=== PATIENT | female | born 1955 | race Caucasian/White ===

== ENCOUNTER 2020-12-13 09:14 | Outpatient (CLI) | payer MEDICARE ==
--- NOTE | 2020-12-14 11:29 | Mammography Report ---
BILATERAL DIGITAL DIAGNOSTIC MAMMOGRAM 3D/2D: 12/13/2020 CLINICAL: Occasional left breast pain. Comparison is made to exam dated: 09/19/2008 mammogram - [facility]. The tissue of both breasts is predominantly fatty. No significant masses, calcifications, or other findings are seen in either breast. Specifically, no finding to explain the patient's diffuse left breast and axillary pain. IMPRESSION: NEGATIVE There is no abnormality seen in the left breast to correspond with the diffuse pain. There is no mammographic evidence of malignancy. Return to annual mammogram screening schedule is rec ommended. Findings and recommendations were conveyed to the patient at time of exam. This exam was interpreted at Station ID: [id number]. NOTE: For mammograms, a report in lay terms will be sent to the patient. Approximately 15% of breast malignancies will not be visualized mammographically. In the management of a palpable breast mass, a negative mammogram must not discourage biopsy of a clinically suspicious lesion. Electronically Signed By: Kristie preston/:12/13/2020 10:14:24 ACR BI-RADS Category 1: Negative 3341F PARENCHYMAL PATTERN: (F) - The breast(s) demonstrate(s) diffuse fatty replacement. BI-RADS CATEGORY: (1) - 1 RECOMMENDATION: (ANNUAL) - Recommend routine annual screening mammography. [id number] return to screening LATERALITY: (B)
== END 2020-12-13 09:15 | disposition home or self-care (01) ==
LOC: DI 09:14
PROVIDERS: ATTEND Nurse Practitioner Family
DX: N63.23 Unspecified lump in the left breast, lower outer quadrant (principal)

== ENCOUNTER 2022-03-21 08:00 | Outpatient (CLI) | payer MEDICARE ==
--- NOTE | 2022-03-21 19:00 | XRAY Report ---
PROCEDURE: Toe(s) LT INDICATIONS: LEFT 2ND TOE NONDISPLACED FX TECHNIQUE: 3 views of the left foot second digit acquired. COMPARISON: None. FINDINGS: Bones: Subacute appearing mildly displaced and impacted fracture of the medial distal aspect of the s econd digit proximal phalanx. The fracture plane involves the PIP joint. There is likely a minimal am ount of bony callus present. No other acute or subacute fractures identified. Soft tissues: No suspicious soft tissue densities. IMPRESSION: Subacute appearing mildly displaced fracture of the second digit proximal phalanx involving the PIP j oint. Adjacent bony callus is likely present. Reviewed by: Shaji Leon MD on 03/21/2022 6:59 PM PDT Approved by: Shaji Leon MD on 03/21/2022 6:59 PM PDT Station ID: [id number]
== END 2022-03-21 23:59 | disposition home or self-care (01) ==
LOC: DI.S 08:00
PROVIDERS: ATTEND Emergency Medicine
DX: S92.505A Nondisplaced unspecified fracture of left lesser toe(s), initial encounter for closed fracture (principal)
CPT/HCPCS: 73660

== ENCOUNTER 2022-06-25 08:25 | Outpatient (CLI) | payer MEDICARE ==
--- NOTE | 2022-06-25 13:36 | DEXA Report ---
PROCEDURE: Dexa Spine and/or Hip INDICATIONS: OSTEOPENIA TECHNIQUE: Dual energy x-ray absorptiometry (DXA) was performed on a Able Device System. Regions measur ed are the AP Spine, femoral neck, and if needed forearm. COMPARISON: None. FINDINGS: Lumbar Spine: Bone Mineral Density 1.097 g/cm/cm,T score -0.7, normal Left Femoral Neck: Bone Mineral Density 0.767 g/cm/cm, T score -2.0, osteopenia Left Hip: Bone Mineral Density 0.750 g/cm/cm,T score -2.0, osteopenia (T score greater or equal to -1.0: NORMAL) (T score from -1.1 to -2.4: OSTEOPENIA) (T score less than or equal to -2.5 to: OSTEOPOROSIS) Impression: 1. Osteopenia elevates the patient's 10 year fracture risk. Patients with diagnosis of osteoporosis or osteopenia should have regular bone mineral density assess ment. For those eligible for Medicare, routine testing is allowed once every 2 years. Testing frequ ency can be increased for patients who have rapidly progressing disease or for those who are receivin g medical therapy to restore bone mass. Reviewed by: Kristie Robledo MD on 06/25/2022 1:35 PM PST Approved by: Kristie Robledo MD on 06/25/2022 1:35 PM PST Station ID: [id number]
== END 2022-06-25 08:26 | disposition home or self-care (01) ==
LOC: DI 08:25
PROVIDERS: ATTEND Nurse Practitioner Family
DX: M85.89 Other specified disorders of bone density and structure, multiple sites (principal)

== ENCOUNTER 2023-08-05 08:02 | Outpatient (CLI) | payer MEDICARE, OTHER ==
--- NOTE | 2023-08-06 12:57 | Mammography Report ---
BILATERAL DIGITAL SCREENING MAMMOGRAM 3D/2D: 08/05/2023 CLINICAL: Routine screening. Family history of breast cancer. Comparison is made to exam dated: 12/13/2020 mammogram - [facility]. There are scattered areas of fibroglandular density in both breasts (category b / 25%-50% glandular t issue). No significant masses, calcifications, or other findings are seen in either breast. There has been no significant interval change. IMPRESSION: NEGATIVE There is no mammographic evidence of malignancy. A 1 year screening mammogram is recommended. Based on the Tyrer Cuzick model (a risk assessment model) the patients lifetime risk is 5.5% and her 10 year risk is 3.3%. According to the ACR, ACS, and NCCN guidelines, an annual breast MRI exam along with mammogram is recommended if the patients lifetime risk is 20% or greater. This exam was interpreted at Station ID: [id number]. NOTE: For mammograms, a report in lay terms will be sent to the patient. Approximately 15% of breast malignancies will not be visualized mammographically. In the management of a palpable breast mass, a negative mammogram must not discourage biopsy of a clinically suspicious lesion. Electronically Signed By: Dennis Aguilar M.D. [email or web address]/[email or web address]:08/05/2023 16:33:33 ACR BI-RADS Category 1: Negative 3341F PARENCHYMAL PATTERN: (A) - The breast(s) demonstrate(s) scattered fibroglandular densities. BI-RADS CATEGORY: (1) - 1 Mammogram [id number] 1 year screening LATERALITY: (B)
== END 2023-08-05 08:03 | disposition home or self-care (01) ==
LOC: DI.S 08:02
PROVIDERS: ATTEND Nurse Practitioner Family
DX: Z12.31 Encounter for screening mammogram for malignant neoplasm of breast (principal); Z80.3 Family history of malignant neoplasm of breast; R92.323 Mammographic fibroglandular density, bilateral breasts